=== PATIENT | male | born 1975 | race Two or more races ===

== ENCOUNTER 2019-10-24 06:35 | Emergency (ER) | payer MEDICAID ==
[~2019-10-24] VITALS: Ht 177.8 cm; Wt 72.6 kg
[2019-10-24] MEDS ORDERED: TAMIFLU75 MG ORAL (07:21)
[2019-10-24] MEDS ORDERED: PROMETHAZINE-D118 ML ORAL (07:21)
[2019-10-24] MEDS ORDERED: CEPHALEXIN500 MG ORAL (07:27)
[2019-10-24 07:35] VITALS: BP 109/72
--- NOTE | 2019-10-24 08:53 | Emergency Room Report ---
History of Present Illness General Chief Complaint: Fever Source: Patient Present Illness HPI 44-year-old male presents ED for cough and fever. States he has been having the symptoms for 1 week. Was seen at [facility] about 5 days ago. Was prescribed Z-Anuel and Motrin. States the cough has subsided but still states he has a fever that comes and goes. Afebrile in triage. Denies sick contacts or recent travel. Vaccinations up-to-date. Did not receive flu shot this year. No other aggravating relieving factors. Denies any other associated symptoms COVID-19 risk:Contact w/high r: No COVID-19 risk:Travel to affect: No Has patient experienced fernandez: Yes Coronavirus symptoms experienc: Fever (T>100.4F or >38C), Cough Allergies: Coded Allergies: No Known Allergies (Unverified , 10/24/19) Patient History Past Medical History: none Past Surgical History: none Pertinent Family History: none Social History: Denies: smoking, alcohol use, drug use Immunizations: UTD Reviewed Nursing Documentation: PMH: Agreed; PSxH: Agreed Review of Systems All Other Systems: negative except mentioned in HPI Physical Exam Vital Signs Date Time Temp Pulse Resp B/P (MAP) Pulse Ox O2 Delivery O2 Flow Rate FiO2 10/24/19 07:00 99.7 103 28 109/72 (84) 98 Room Air Sp02 EP Interpretation: reviewed, normal General Appearance: no apparent distress, alert, GCS 15, non-toxic Head: normocephalic, atraumatic Eyes: bilateral eye normal inspection, bilateral eye PERRL ENT: hearing grossly normal, normal pharynx, no angioedema, normal voice Neck: full range of motion, supple/symm/no masses Respiratory: chest non-tender, lungs clear, normal breath sounds, speaking full sentences Cardiovascular #1: regular rate, rhythm, no edema Cardiovascular #2: 2+ carotid (R), 2+ carotid (L), 2+ radial (R), 2+ radial (L) , 2+ dorsalis pedis (R), 2+ dorsalis pedis (L) Gastrointestinal: normal bowel sounds, non tender, soft, non-distended, no guarding, no rebound Rectal: deferred Genitourinary: normal inspection, no CVA tenderness Musculoskeletal: back normal, normal range of motion, gait/station normal, non- tender Neurologic: alert, motor strength/tone normal, oriented x3, sensory intact, responsive, speech normal Psychiatric: judgement/insight normal, memory normal, mood/affect normal, no suicidal/homicidal ideation Reflexes: 3+ bicep (R), 3+ bicep (L), 3+ tricep (R), 3+ tricep (L), 3+ knee (R) , 3+ knee (L) Lymphatic: no adenopathy Medical Decision Making Diagnostic Impression: Primary Impression: Flu-like symptoms ER Course Hospital Course 44 yo M presents with cough, fever x 1 week Differential diagnoses include: URI, pharyngitis, otitis media, asthma Clinical course Patient placed isolation tent. I were full protective equipment. After initial history, physical exam reveals a male in no acute distress. Bilateral TM unremarkable. No pharyngeal erythema. No tonsillar exudates. No lymphadenopathy. lungs clear. abdomen soft. Patient afebrile, nontoxic-appearing. Vitals stable. I discussed findings with patient. Concern for influenza versus coronavirus. Did not receive flu shot. Will treat with Tamiflu. I will provide cough medication prescription. If this is in fact coronavirus patient will need to self isolate for 14 days. Continue Motrin versus Tylenol for fever. Fluids and rest. His close contacts will also need to self-isolate. Safe for discharge close outpatient follow-up Diagnosis - flu like symptoms Stable and discharged home with Rx Tamiflu, Promethazine. self-isolate for 14 days. Instructed to followup with PMD. Return to ED if symptoms recur or worsen Last Vital Signs Date Time Temp Pulse Resp B/P (MAP) Pulse Ox O2 Delivery O2 Flow Rate FiO2 10/24/19 07:35 99.7 103 28 109/72 98 Room Air Status: improved Disposition: HOME, SELF-CARE Condition: Stable Scripts Cephalexin* (KEFLEX*) 500 Mg Capsule 500 MG ORAL EVERY 6 HOURS for 7 Days, CAP Prov: Keegan Baltazar MD 10/24/19 D-Methorphan Hb/Prometh Hcl* (PROMETHAZINE-DM SYRUP*) 118 Ml Syrup 5 ML ORAL Q6H PRN for For Cough, #118 ML 0 Refills Prov: Keegan Baltazar MD 10/24/19 Oseltamivir Phosphate (Tamiflu) 75 Mg Capsule 75 MG ORAL TWICE A DAY for 5 Days, CAP Prov: Keegan Baltazar MD 10/24/19 Referrals: Jose Blair [facility] Patient Instructions: Influenza, Adult, [id number] Additional Instructions: you may have fernandez virus. we will prescribe tamiflu for possible flu but you need to go home and self-isolate. your close contacts need to self-isolate as well Keegan Baltazar MD Oct 24, 2019 08:53
== END 2019-10-24 08:00 | disposition home or self-care (01) ==
LOC: EMR 07:40
DX: R05 Cough (principal); R50.9 Fever, unspecified; Z03.818 Encounter for observation for suspected exposure to other biological agents ruled out
CPT/HCPCS: 99282